=== PATIENT | female | born 1985 | race African-American/Black ===

== ENCOUNTER 2019-10-23 11:07 | Emergency (ER) | payer SELFPAY ==
[~2019-10-23] VITALS: Ht 165.1 cm; Wt 83.2 kg
--- NOTE | 2019-10-23 11:10 | NUR ---
[email or web address]
[2019-10-23] MEDS ORDERED: DIPHENHYDRAMINE 50 MG/ML, 1ML ONE (11:46)
[2019-10-23] MEDS ORDERED: HALOPERIDOL 5 MG/ML ONE (11:46)
[2019-10-23] MEDS ORDERED: METOCLOPRAMIDE 5 MG/ML, 2ML ONE (11:46)
[2019-10-23 11:56] LABS: MEAN CORPUSCULAR HGB CONC 31.3 g/dL (32.4-35.8); MEAN CORPUSCULAR VOLUME 83.2 fL (80-100); MEAN PLATELET VOLUME 9.6 fL (7.4-10.4); PLATELET COUNT 351 x10^3/uL (130-400); RED BLOOD COUNT 5.26 x10^6/uL (3.82-5.3); RED CELL DISTRIBUTION WIDTH 15.9 % (9.6-15.2)
[2019-10-23] MEDS ORDERED: METOCLOPRAMIDE 5 MG/ML, 2ML IVPush ONE (12:00)
[2019-10-23] MEDS ORDERED: SODIUM CHLORIDE 0.9% 1,000ML IVBOLUS ONE (12:00)
[2019-10-23] MEDS ORDERED: HALOPERIDOL 5 MG/ML IV ONE (12:00)
[2019-10-23] MEDS ORDERED: SODIUM CHLORIDE FLUSH 10ML SYR IVF ONE (12:00)
[2019-10-23] MEDS ORDERED: DIPHENHYDRAMINE 50 MG/ML, 1ML IVPush ONE (12:00)
[2019-10-23 12:07] LABS: ALBUMIN 4.5 g/dL (3.4-5.0); ANION GAP 12 mmol/L (5-15); CALCIUM 10.3 mg/dL (8.5-10.1); CHLORIDE 107 mmol/L (98-107)
[2019-10-23 12:11] LABS: MD YES
[2019-10-23 12:13] LABS: <PLATELET ESTIMATE> ADEQUATE; <PLT MORPHOLOGY> NORMAL PLT MORPH; ALANINE AMINOTRANSFERASE 37 U/L (12-78); ALKALINE PHOSPHATASE 81 U/L (45-117); ANISOCYTOSIS 1+; BAND#(MANUAL) 1.54 x10^3/uL; BANDS%(MANUAL) 8 % (0-7); BASOS#(MANUAL) 0.19 x10^3/uL (0-0.1); BASOS% (MANUAL) 1 % (0-1); BILIRUBIN,TOTAL 0.2 mg/dL (0.2-1.0); CREATININE 1.06 mg/dL (0.55-1.02); LYMPH#(MANUAL) 1.16 x10^3/uL (1-3.4); LYMPHS% (MANUAL) 6 % (22-44); MONOS#(MANUAL) 1.35 x10^3/uL (0.3-2.7); MONOS% (MANUAL) 7 % (2-9); SEG#(MANUAL) 15.05 x10^3/uL (1.8-6.8); SEGS% (MANUAL) 78 % (42-75); TOTAL PROTEIN 8.5 g/dL (6.4-8.2)
--- NOTE | 2019-10-23 12:47 | NUR ---
PT AT CT.
--- NOTE | 2019-10-23 12:48 | NUR ---
PT AMBULATED TO RM 7. MD AT BEDSIDE. PT STATED "PAIN IS 10/10". PT WAS TEARFUL AND RESTLESS. PT MEDICATED PER MAR. PT HAS CALL LIGHT AND BELONGINGS NEAR BY, BED IN LOWEST POSITION, AND RAILS UP. PT EDUCATED TO CALL BEFORE GETTING UP. AFTER MEDICATING PT STATED PAIN WAS 6/10 AND SHE WAS RESTING WITH EYES CLOSED.
[2019-10-23] MEDS ORDERED: MORPHINE SULFATE 4 MG/ML, 1ML IVPush ONE (13:00)
[2019-10-23] MEDS ORDERED: OMNIPAQUE 350 MG/ML, 100ML BOTTLE ONE (13:04)
--- NOTE | 2019-10-23 13:21 | NUR ---
PT BACK IN ROOM FROM CT. RESTING WTIH EYES CLOSED AND SNORING.
[2019-10-23 13:35] VITALS: BP 111/62
== END 2019-10-23 14:17 | disposition home or self-care (01) ==
LOC: ED 12:44
DX: R11.2 Nausea with vomiting, unspecified (principal); R19.7 Diarrhea, unspecified; R10.84 Generalized abdominal pain
CPT/HCPCS: 36415; 74177; 80053; 83690; 84703; 85025; 93005; 96361; 96374; 96375; 99285; J1200; J1630; J2765; J7030; Q9967